=== PATIENT | male | born 1990 | race Caucasian/White ===

== ENCOUNTER 2024-10-09 13:45 | Emergency (ER) | payer OTHER, SELFPAY ==
[2024-10-09 13:51] VITALS: BP 117/77; PULSE 74; O2SAT 99
[2024-10-09 13:55] VITALS: BP 117/77; PULSE 74; RESP 16; TEMP 36.8; O2SAT 98; BMI 26.9
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
[2024-10-09 15:53] VITALS: BP 157/98; PULSE 69; RESP 18; TEMP 36.6; O2SAT 98
--- NOTE | 2024-10-09 15:53 | PC.NURSE ---
PT WAS GIVEN A KNEE MOBILIZER AND CRUTCHES AT THIS TIME
== END 2024-10-09 16:07 | disposition home or self-care (01) ==
PROVIDERS: Emergency Provider Emergency Medicine; PCP Nurse Practitioner Family
DX: M25.562 Pain in left knee (principal); X58.XXXA Exposure to other specified factors, initial encounter; Y93.89 Activity, other specified; Y92.9 Unspecified place or not applicable
CPT/HCPCS: 73562; 99283

== ENCOUNTER 2024-10-22 07:27 | Outpatient (CLI) | payer OTHER, SELFPAY ==
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
== END 2024-10-22 23:59 | disposition home or self-care (01) ==
LOC: RAD 07:28
PROVIDERS: PCP Nurse Practitioner Family; Visit Provider Physician Assistant
DX: M25.562 Pain in left knee (principal); M23.92 Unspecified internal derangement of left knee
CPT/HCPCS: 73721

== ENCOUNTER 2024-10-27 11:26 | Outpatient (RCR) | payer OTHER, SELFPAY | END 2024-10-27 23:59 | disposition home or self-care (01) | LOC: PT 11:26 | PROVIDERS: Visit Provider Physician Assistant | DX: M25.562 Pain in left knee (principal); M23.92 Unspecified internal derangement of left knee | CPT/HCPCS: 97760 ==